=== PATIENT | male | born 1955 | race African-American/Black ===

== ENCOUNTER 2019-08-01 09:48 | Emergency (ER) | payer MEDICARE ==
[~2019-08-01] VITALS: Ht 175.3 cm; Wt 81.8 kg
[2019-08-01] MEDS ORDERED: METF-960 PO (10:05)
[2019-08-01] MEDS ORDERED: HTN MED PO (10:05)
[2019-08-01] MEDS ORDERED: BENZ2TAB10 PO ×2 (10:05)
[2019-08-01] MEDS ORDERED: CLOZ100 PO (10:05)
[2019-08-01] MEDS ORDERED: FLUO-191 PO (10:05)
[2019-08-01] MEDS ORDERED: MethylPREDNISolone SOD SUCC 125 MG/2 ML VIAL IVP ONE (11:30)
[2019-08-01] MEDS ORDERED: 0.9% SODIUM CHLORIDE 10 ML SYRINGE IVP PRN (11:30)
[2019-08-01] MEDS ORDERED: SODIUM CHLORIDE 0.9% 1,000 ML IV ONE (11:30)
[2019-08-01] MEDS ORDERED: KETOROLAC TROMETHAMINE 30 MG/ML VIAL IVP ONE (11:30)
[2019-08-01 11:51] LABS: BASOPHILS % (AUTO) 0.2 % (0.0-2.0); EOSINOPHILS % (AUTO) 0.6 % (1.0-6.0); HEMATOCRIT 35.3 % (41-53); HEMOGLOBIN 11.8 g/dL (13.5-17.5); LYMPHOCYTES # (AUTO) 0.9 K/uL (1.0-4.8); LYMPHOCYTES % (AUTO) 7.2 % (22.0-44.0); MEAN CORPUSCULAR HEMOGLOBIN 31.7 pg (26.0-34.0); MEAN CORPUSCULAR HGB CONC 33.3 G/dL (31.0-37.0); MEAN CORPUSCULAR VOLUME 95 fL (80-100); MONOCYTES # (AUTO) 1.4 K/uL (0.1-1.0); MONOCYTES % (AUTO) 10.4 % (2.0-9.0); NEUTROPHILS # (AUTO) 10.7 K/uL (1.8-7.7); NEUTROPHILS % (AUTO) 81.6 % (40.0-70.0); PLATELET COUNT (AUTO) 229 K/uL (150-450); RED BLOOD CELL COUNT(AUTO) 3.71 MIL/uL (4.50-5.90)
[2019-08-01 12:03] LABS: INR 1.1 (0.9-1.1); PROTHROMBIN TIME 10.7 SEC (9.4-11.6)
[2019-08-01 12:09] LABS: ALANINE AMINOTRANSFERASE 15 U/L (12-78); ALBUMIN 2.8 g/dL (3.4-5.0); ALKALINE PHOSPHATASE 83 U/L (46-116); ANION GAP 7 mmol/L (8-16); ASPARTATE AMINOTRANSFERASE 16 U/L (15-37); BILIRUBIN,TOTAL 0.6 mg/dL (0.1-1.0); CALCIUM, TOTAL 8.9 mg/dL (8.8-10.5); CARBON DIOXIDE 30 mmol/L (22-29); CHLORIDE 108 mmol/L (98-107); CREATININE 0.89 mg/dL (0.60-1.30); GLOMERULAR FILTR. RATE CALC > 60 mL/min (>60); GLUCOSE,RANDOM 131 mg/dL (70-110); SODIUM SERUM 145 mmol/L (136-145); TOTAL PROTEIN, SERUM 7.4 g/dL (6.4-8.2); UREA NITROGEN, BLOOD 8 mg/dL (7-18)
[2019-08-01 12:10] LABS: B-TYPE NATRIURETIC PEPTIDE 47 pg/mL (0-100)
[2019-08-01 12:14] LABS: LACTIC ACID 0.5 mmol/L (0.4-2.0)
[2019-08-01] MEDS ORDERED: CloNIDine HCL 0.2 MG TABLET PO ONE (12:45)
[2019-08-01] MEDS ORDERED: SODIUM CHLORIDE 0.9% 100 ML ONE (13:17)
[2019-08-01] MEDS ORDERED: IOVERSOL 320 MG/ML 100 ML VIAL ONE (13:18)
[2019-08-01 13:27] LABS: INFLUENZA TYPE A NEGATIVE FOR TYPE A (NEGATIVE); INFLUENZA TYPE B NEGATIVE FOR TYPE B (NEGATIVE)
[2019-08-01] MEDS ORDERED: VANCOMYCIN HCL 1 GM/D5% WATER 200 ML IV ONE (14:45)
[2019-08-01] MEDS ORDERED: PIPERACILLIN/TAZO 3.375 GM/D5W 50 ML IV ONE (14:45)
[2019-08-01 17:52] VITALS: BP 158/89
[2019-08-01] MEDS ORDERED: POTASSIUM CHL 10 MEQ/WATER 50 ML IV SCH (18:15)
== END 2019-08-01 19:08 | disposition short-term general hospital (02) ==
LOC: EMS 09:51
DX: J02.0 Streptococcal pharyngitis (principal); L03.221 Cellulitis of neck; K12.2 Cellulitis and abscess of mouth; E11.9 Type 2 diabetes mellitus without complications; I10 Essential (primary) hypertension; F20.9 Schizophrenia, unspecified; F17.210 Nicotine dependence, cigarettes, uncomplicated; Z79.84 Long term (current) use of oral hypoglycemic drugs
CPT/HCPCS: 36415; 70491; 80053; 83605; 83880; 84484; 85025; 85610; 85730; 87040; 87430; 87804; 93005; 96365; 96366; 96367; 96375; 99285; J1885; J2543; J2930; J3370; J7030; J7050; Q9967